=== PATIENT | female | born 1940 | race Caucasian/White ===

== ENCOUNTER 2018-04-28 11:55 | Emergency (ER) | payer MEDICARE, BC ==
[2018-04-28] MEDS ORDERED: Morphine 2 MG/ML Syringe ONE (13:30)
[2018-04-28] MEDS ORDERED: Aspirin 81 MG Tab.Chew ONE (13:30)
[2018-04-28] MEDS ORDERED: Clopidogrel 75 MG Tab ONE (13:30)
[2018-04-28] MEDS ORDERED: Iopamidol 612 MG/ML 100 ML Bottle IV PRN (13:33)
[2018-04-28] MEDS ORDERED: Furosemide 40 MG/4 ML VIAL IVPUSH ONE (13:43)
[2018-04-28] MEDS ORDERED: Lactated Ringers 1,000 ML IV SCH (13:45)
[2018-04-28] MEDS ORDERED: Sodium Chloride 0.9% 50 ML SDV FLUSH SCH (13:45)
--- NOTE | 2018-04-29 08:08 | CR ---
DATE OF SERVICE: 04/28/18 CLINICAL DATA: CHEST PAIN AP CHEST: No priors. The patient has taken a poor inspiration. The heart size is within normal limits. There are densities in both lung bases, consistent with basilar atelectasis or infiltrate, left greater than right. The lungs are otherwise clear. No pneumothorax. No pleural effusions. [id number] MTDD
--- NOTE | 2018-04-29 08:18 | CT ---
DATE OF SERVICE: 04/28/18 CLINICAL DATA: elevated D-Dimer ENHANCED CHEST CT: Multi slice acquisition through the chest with IV contrast was performed. No priors. Breathing motion artifact degrades image quality. No evidence of PE. No pneumothorax. No pleural effusions. There are atelectatic changes involving the lingular segment of the left upper lobe and the dependent portion of both lungs with small areas of consolidation in both lung bases. Pneumonia should be considered. There is an irregularly shaped density in the right costophrenic angle anteriorly. This may be a small area of consolidation. I cannot exclude a pulmonary nodule and follow-up imaging is recommended. The heart is mildly enlarged. No significant pericardial effusion. No hilar or mediastinal adenopathy. There is a small hiatal hernia. There is a small amount of fluid adjacent to the liver consistent with ascites. The gallbladder is fractionally visualized. It is significantly distended and there is questionable pericholecystic fluid. Gallbladder ultrasound is recommended. There is a 12 mm low density lesion within the dome of the liver, which is most likely a cyst. The thyroid gland is enlarged and has heterogeneous attenuation. Thyroid ultrasound is recommended. There are fluid density lesions in both renal sinuses, consistent with peripelvic cysts. No other significant findings. IMPRESSION: Negative for PE. Multiple other findings as discussed above. See above recommendations. [id number] [facility]
== END 2018-04-28 14:15 ==
LOC: LB.ED 11:55
DX: I21.9 Acute myocardial infarction, unspecified (principal); K80.20 Calculus of gallbladder without cholecystitis without obstruction; E86.0 Dehydration; I50.9 Heart failure, unspecified; K21.9 Gastro-esophageal reflux disease without esophagitis; F41.9 Anxiety disorder, unspecified; Z79.899 Other long term (current) drug therapy
CPT/HCPCS: 36415; 51702; 71045; 71260; 80053; 81001; 83880; 84484; 85025; 85379; 93005; 96374; 99285-25; J1940; J7120; Q9967